=== PATIENT | female | born 1945 | race Caucasian/White ===

== ENCOUNTER → 2016-04-15 | Outpatient (CLI) | payer OTHER, BC | LOC: FIMAGING 15:10 | PROVIDERS: ATTEND Orthopaedic Surgery Foot and Ankle Surgery | DX: M23.221 Derangement of posterior horn of medial meniscus due to old tear or injury, right knee (principal); M22.41 Chondromalacia patellae, right knee; M25.461 Effusion, right knee; M25.561 Pain in right knee ==

== ENCOUNTER 2017-02-21 07:13 | Observation (INO) | payer OTHER ==
--- NOTE | 2017-02-12 18:13 | GHP ---
[f rep st] PREOP HISTORY AND PHYSICAL DATE OF ADMISSION: 02/21/2017 PROBLEM: Right knee arthritis. HISTORY OF PRESENT ILLNESS: The patient is a 71-year-old woman, admitted for a right total knee arth roplasty. She has had progressive pain in her right knee since early 2016. She has had viscosupplem entation injections. I did arthroscopic surgery on her knee in June of 2016. She has had progressive pain. She is now having daily pain, which is limiting her function and activities and quality of li fe. She is admitted for a right total knee arthroplasty. PAST MEDICAL HISTORY: She has treated hypertension, elevated cholesterol, and depression. No histor y of heart disease, stents, DVT, hepatitis, sleep apnea, or bleeding problems. CURRENT MEDICATIONS: Lisinopril 10 mg/hydrochlorothiazide 12.5 mg 1 tablet daily. Paxil 20 mg per d ay. Simvastatin 40 mg per day. DRUG ALLERGIES: Penicillin and sulfa. METAL ALLERGIES: None. LATEX ALLERGY: None. SOCIAL HISTORY: The patient is . She is retired. She does not smoke cigarettes and occasion ally drinks wine. PHYSICAL EXAMINATION: EYES: The conjunctivae and sclerae are clear. Pupils are round and reactive. MOUTH: Good oral hygiene. VITALS: Height 5 feet 2 inches. Weight 179 pounds. BMI 32.7. CHEST: Clear. HEART: Regular rhythm. No murmurs. EXTREMITIES: Pertinent findings limited to her right knee. She has a small effusion. Her ligaments are stable. Full extension and 110 degrees of flexi on. IMAGING: Her films show cartilage space narrowing in the medial and lateral compartments. She has a cemented left total knee arthroplasty with good component position. IMPRESSION ON ADMISSION: 1. Right knee degenerative arthritis. She is prepared for a right total knee arthroplasty. 2. Eleven years status post successful left total knee arthroplasty. 3. Treatment for hypertension, elevated cholesterol, and depression. PLAN: She will undergo a right total knee arthroplasty. The surgery has been described to her, incl uding the risks, complications, expectations, and recovery time. I have stressed the importance of p ostoperative physical therapy. I have advised her that a small percentage of people do not get a goo d result with a total knee replacement. I have also counseled her that with bilateral procedures, th ere can be mild [id number] differences during the recovery and even with the final result. All her questions have been answered, and she consents to surgery. Copy requested to: Dr. Jomar Elizalde, [place] /[id number]/MODL
[~2017-02-21 07:13] MED LIST: POVIDONE-IODINE 20 ML in SODIUM CL IRRIG SOLUTION 500 ML IRR ONE; ROPIVACAINE 0.2% 80 MG, EPINEPHrine 0.2 MG, KETOROLAC TROMETHAMINE 30 MG in SYRINGE 0 ML IU ONE; TRANEXAMIC ACID 800 MG in NS 100 ML IV ONE; VANCOMYCIN PHARMACY TO DOSE MISC ONE
[2017-02-21] MEDS ORDERED: GABAPENTIN 300 MG CAP PO ONE (07:23)
[2017-02-21] MEDS ORDERED: ACETAMINOPHEN 325 MG TAB PO ONE (07:23)
[2017-02-21] MEDS ORDERED: DEXAMETHASONE 4 MG/ML VIAL IVP ONE (07:23)
[2017-02-21] MEDS ORDERED: FAMOTIDINE 20 MG TAB PO ONE (07:23)
[2017-02-21] MEDS ORDERED: LIDOCAINE 1% 2 ML INJ ID PRN (07:25)
[2017-02-21] MEDS ORDERED: LR 1,000 ML IV ONE (07:25)
[2017-02-21] MEDS: VANCOMYCIN 1.25 GM in D5W 250 ML IV ONE ×2 (07:54→09:00)
--- NOTE | 2017-02-21 08:53 | PDANEPAE ---
ANE History of Present Illness 71 yo female with R knee OA for R TKA. ANE Past Medical History - Cardiovascular History Hx Hypertension: Yes Hx Arrhythmias: No Hx Chest Pain: No Hx Coronary Artery / Peripheral Vascular Disease: No Hx CHF / Valvular Disease: No Hx Palpitations: No Cardiovascular History Comment: hypercholesterolemia - Pulmonary History Hx COPD: No Hx Asthma/Reactive Airway Disease: No Hx Recent Upper Respiratory Infection: No Hx Oxygen in Use at Home: No Hx Sleep Apnea: No Sleep Apnea Screening Result - Last Documented: Negative Pulmonary History Comment: URI 01/2017 TREATED WITH ANTIBIOTICS NOW RESOLVED - Neurologic History Hx Cerebrovascular Accident: No Hx Seizures: No Hx Dementia: No - Endocrine History Hx Diabetes: No Hypothyroid: No Obesity: moderate - Renal History Hx Renal Disorders: Yes Renal History Comment: BLADDER URGE INCONT. - Liver History Hx Hepatic Disorders: No - Neurological & Psychiatric Hx Hx Neurological and Psychiatric Disorders: No - Cancer History Hx Cancer: No - Congenital Disorder History Hx Congenital Disorders: No - GI History Hx Gastrointestinal Disorders: Yes Gastrointestinal History Comment: INSTANT DIARRHEA WHEN NERVOUS - Other Health History Other Health History: FIBROMYALGIA - Chronic Pain History Chronic Pain: Yes (RT KNEE) - Surgical History Prior Surgeries: LISSETTE ING HERNIA 08/2016. LT TOTAL KNEE. RT KNEE SCOPE. HYSTERECTOMY ANE Review of Systems Review of Systems: - Exercise capacity METS (RN): 4 METS - Systems Constitutional: Reports: no symptoms Cardiac: Reports: no symptoms Respiratory: Reports: no symptoms Gastrointestinal: Reports: no symptoms ANE Patient History - Allergies Allergies/Adverse Reactions: Penicillins Allergy (Verified 02/02/17 12:10) Hives Sulfa (Sulfonamide Antibiotics) Allergy (Verified 02/02/17 12:11) Hives - Home Medications Home Medications: Herbals/Supplements -Info Only 1 ea PO DAILY 02/02/17 [Last Taken 02/14/17] Lisinopril [Zestril 20 mg (*)] 10 mg PO HS 02/02/17 [Last Taken 02/20/17] Multivitamins [Multivitamin (*)] 1 each PO DAILY 02/02/17 [Last Taken 02/14/17] PARoxetine HCL [Paroxetine HCl] 20 mg PO DAILY 02/02/17 [Last Taken 02/20/17] Simvastatin [Zocor] 10 mg PO HS 02/02/17 [Last Taken 02/20/17 21:00] - NPO status NPO Since - Liquids (Date): 02/20/17 NPO Since - Liquids (Time): 20:30 (small sip this AM with pre-op oral meds) NPO Since - Solids (Date): 02/20/17 NPO Since - Solids (Time): 20:30 - Anes Hx Anes Hx: no prior problems - Smoking Hx Smoking Status: Never smoked Marijuana use: No - Alcohol Use Alcohol Use: Heavy (14/week) - Family Anes Hx Family Anes Hx: neg - N/A ANE Labs/Vital Signs - Labs - CBC HGB: 14 HCT: 45 Platelet Count: 216 - Vital Signs Blood Pressure: 133/90 Heart Rate: 82 Respiratory Rate: 16 O2 Sat (%): 94 Height: 157.48 cm Weight: 80.286 kg ANE Physical Exam - Airway Neck exam: FROM Mallampati Score: Class 2 Mouth exam: normal dental/mouth exam - Pulmonary Pulmonary: clear to auscultation - Cardiovascular Cardiovascular: regular rate and rhythym - ASA Status ASA Status: II ANE Anesthesia Plan Anesthesia Plan: spinal Regional Anesthesia: continuous NB, adductor canal FNB
[2017-02-21] MEDS ORDERED: VANCOMYCIN 1 GM VIAL ONE (09:25)
[2017-02-21] MEDS ORDERED: ceFAZolin 1 GM/5 ML SYR ONE (09:25)
--- NOTE | 2017-02-21 09:31 | PDHPUP ---
History & Physical Update H&P update statement: This history and physical update is based on an assessment of the patient which was completed after admission or registration (within 24 hours), but prior to the surgery/procedure. H&P update: H&P reviewed & patient examined, no change in patient's condition since H&P completed
[2017-02-21] MEDS ORDERED: fentaNYL 100 MCG/2 ML INJ ONE (10:04)
[2017-02-21] MEDS ORDERED: PROPOFOL/EMULSION 500 MG/50 ML BOTTLE IV ONE ×2 (10:04→11:21)
[2017-02-21] MEDS ORDERED: LIDOCAINE 2% 5 ML SDV ONE (10:04)
[2017-02-21] MEDS ORDERED: fentaNYL 100 MCG/2 ML INJ IVP PRN (12:05)
[2017-02-21] MEDS ORDERED: DIAZEPAM 10 MG/2 ML SYR IVP PRN (12:05)
[2017-02-21] MEDS ORDERED: ONDANSETRON 4 MG/2 ML VIAL IVP PRN ×2 (12:05→12:24)
[2017-02-21] MEDS ORDERED: ALBUTEROL 3 ML DEYVIAL IH PRN (12:05)
[2017-02-21] MEDS ORDERED: OXYCODONE/APAP 5/325 TAB PO PRN (12:05)
[2017-02-21] MEDS ORDERED: NALOXONE HCL 0.4 MG/ML INJ IVP PRN (12:05)
[2017-02-21] MEDS ORDERED: LR 500 ML IV PRN (12:05)
--- NOTE | 2017-02-21 12:07 | POSTOPPROG ---
Post Op Note Date of Operation: 02/21/17 Surgeon: Jensen Allan Burner Machine Operator: Morgan/Esa Anesthesiologist: Dr. Leslie Stephenson Anesthesia: IV Sedation, Spinal Post-op Diagnosis: right knee arthritis Procedure: right TKA Inf/Abcess present in the surg proc area at time of surgery?: No EBL: 50-100 (adductor canal block in PACU)
[2017-02-21] MEDS ORDERED: BISACODYL 10 MG SUPP PR PRN (12:24)
[2017-02-21] MEDS ORDERED: DIPHENOXYLATE/ATROPINE LOMOTIL 1 TAB PO PRN (12:24)
[2017-02-21] MEDS ORDERED: CYCLOBENZAPRINE 10 MG TAB PO PRN (12:24)
[2017-02-21] MEDS ORDERED: KETOROLAC 30 MG/1 ML SDV IVP PRN (12:24)
[2017-02-21] MEDS ORDERED: NS 500 ML IV PRN (12:24)
[2017-02-21] MEDS ORDERED: POLYETHYLENE GLYCOL 3350 17 GM PKT PO PRN (12:24)
[2017-02-21] MEDS ORDERED: traMADol 50 MG TAB PO PRN (12:24)
[2017-02-21] MEDS ORDERED: PROMETHAZINE HCL 25 MG/ML INJ IVP PRN (12:24)
[2017-02-21] MEDS ORDERED: LACTULOSE 20 GM/30 ML UDCUP PO PRN (12:24)
[2017-02-21] MEDS ORDERED: ONDANSETRON DISINTEGRATING 4 MG TAB PO PRN (12:24)
[2017-02-21] MEDS ORDERED: diphenhydrAMINE 25 MG CAP PO PRN (12:24)
[2017-02-21] MEDS ORDERED: TEMAZEPAM 15 MG CAP PO PRN (12:24)
[2017-02-21] MEDS ORDERED: PROMETHAZINE HCL 25 MG SUPPR PR PRN (12:24)
[2017-02-21] MEDS ORDERED: MAGNESIUM HYDROXIDE 30 ML UDCUP PO PRN (12:24)
[2017-02-21] MEDS ORDERED: LR 1,000 ML IV SCH (12:30)
--- NOTE | 2017-02-21 12:44 | POSTANESTH ---
Post Anesthetic Evaluation Cardiovascular Status: Normal, Stable Respiratory Status: Normal, Stable Level of Consciousness/Mental Status: Can Participate in Eval, Mildly Sleepy, Arousable Pain Control: Adequate, Prn Tx Ordered Nausea/Vomiting Control: Adequate, Prn Tx Ordered Complications Possibly Related to Anesthesia: None Noted (Pt comfortable. Moving LE bilaterally. Adductor canal block with catheter placement in PACU while LE still numb from spinal block. No complications. VSS)
--- NOTE | 2017-02-21 12:57 | GOP ---
[f rep st] OPERATIVE REPORT DATE OF OPERATION: 02/21/2017 SURGEON: Jensen Allan MD FISH ROE PROCESSOR: 1. Ambrocio Mora, PAC. 2. Mesfin See BUSINESS INTELLIGENCE ENGINEER. ANESTHESIA: Combination of Marcaine spinal, IV sedation, and adductor canal block. ANESTHESIOLOGIST: Leslie Stephenson MD. PREOPERATIVE DIAGNOSIS: Right knee degenerative arthritis. POSTOPERATIVE DIAGNOSIS: Right knee degenerative arthritis. PROCEDURE PERFORMED: Right total knee arthroplasty, cemented, Hernandez and Nephew Journey II, posterior stabilized. FINDINGS: DESCRIPTION OF PROCEDURE: The patient was given 1.5 g of vancomycin preoperatively within 60 minutes of surgery. She also received IV tranexamic acid at a dose of 10 mg/kg. She was placed on the oper ating room table and given spinal anesthesia with Marcaine by Dr. Stephenson. She was then placed supin e and given IV sedation. A Fuentes catheter was not used. A PALOMA stocking and SCD were placed on the n onoperative leg. Her right lower extremity was prepped with ChloraPrep from the upper thigh tourniqu et to the tips of the toes. It was draped free using sterile sheets, stockinette, and Ioban plastic adhesive drape. The lower leg was wrapped with compressive Coban. The leg was exsanguinated with el evation and a 6-inch compressive wrap, and the pneumatic tourniquet was inflated to 275 mmHg. The World Health Organization time-out was performed to verify the correct patient identity and the c orrect surgical side and site. The [place] time-out was also performed. The [facility] leg holding device was sterilely attached to the operating room table and used throughout the procedure to help position the knee. A straight midline incision was made centered on the grover la. Subcutaneous tissues were sharply divided, and hemostasis was obtained using electrocautery. A medial subcutaneous flap was developed, and the capsule and synovium were opened in a medial parapate llar fashion. Extensive degenerative changes were present, primarily in the medial compartment and i n the patellofemoral joint. Her medial patellofemoral facet was eroded down to subchondral bone. Th e medial capsule and periosteum were elevated off the rim of the medial tibial plateau all the way ar ound to the posteromedial corner. The medial collateral ligament was released enough to balance the medial side of the knee. In order to improve exposure, her patella was prepared first. The original thickness of the patella was measured. I cut a flat surface on the back of the patella. It was sized for a 35 mm resurfacing component. I removed enough bone from the patella such that the remaining bone plus the thickness o f the patellar component recreated the original thickness of the patella. The composite thickness wa s 21 mm. The intramedullary alignment guide system was used to set up the distal femoral cut. The distal femu r was cut in 6 degrees of valgus. Because of a preoperative flexion contracture, I made a +2 mm cut on the distal femur. The sizing jig was used to determine proper femoral sizing. The 5-in-1 cutting block was applied, and the anterior and posterior condylar cuts were made. I shifted the size 5 jig anteriorly 1 mm in order to accommodate the size 5 without notching the anterior cortex. The final jig was used to remove the central portion of the distal femur to accommodate the posterior stabilize d femoral component. I was careful to determine proper rotation by referencing off [place] line an d other bony landmarks. Each cut was checked for accuracy before and after it was made. The femur w as sized for a size 5 posterior stabilized component. Next, the tibia was prepared. The proximal tibial cut was made using the extramedullary alignment gu hanane system. The cut was made in a few degrees of posterior slope. I was careful to achieve proper v arus/valgus alignment. The posterior compartment was cleared of meniscal remnants. Osteophytes were removed from the back of the femoral condyles. I did a trial reduction, and she was a little tight both in extension and flexion. I went ahead and cut 2 additional mm off the proximal tibia. I then checked the flexion and extension gaps, and they were equal and rectangular. Her tibia was sized for a size 4 component. With the trial components in place, I selected a 10 mm polyethylene posterior s tabilized tibial insert. The knee came to full extension and flexed to 125 degrees. Her collateral ligaments were stable and balanced in 90 degrees of flexion and full extension. The trial patellar b utton was applied, and tracking was checked. She had excellent tracking without any digital pressure . 40 mL of the joint anesthetic cocktail were injected into the posterior capsule, the periarticular st ructures, the quadriceps muscle and tendon areas, and the subcutaneous tissues along the skin edges. A second dose of IV tranexamic acid was given at a dose of 10 mg/kg. The surfaces were prepared for cementing. They were carefully cleaned with the pulsating lavage irri gation and thoroughly dried. The CarboJet device was used to blow-dry the cancellous surfaces. A do uble batch of high viscosity methylmethacrylate cement with 2 g of powdered vancomycin added was mixe d. While it was still in a doughy state, all 3 components were cemented in place. Excess cement was removed before it hardened. The 10 mm trial tibial insert was re-tried and was the proper thickness. The actual component was in serted and locked into place. The knee was thoroughly irrigated 1 final time with a dilute Betadine solution. The tourniquet was deflated, and total tourniquet time was 61 minutes. The vastus medialis portion of the extensor mechanism was repaired with several interrupted figure-of -eight #2 FiberWire sutures. The capsule and synovium were closed first with multiple interrupted fi caxm-cm-[id number] 0 PDS sutures, followed by a running #2 barbed Ethicon STRATAFIX PDO suture. The subcu taneous tissues were closed with a running 0 barbed Ethicon STRATAFIX Monoderm suture. The skin was closed with a running 3-0 barbed Ethicon STRATAFIX Monoderm subcuticular suture. The skin edges were sealed with half-inch Steri-Strips. The wound was covered with a piece of large Mepilex waterproof dressing and a 6-inch compressive wrap. A long-leg PALOMA stocking and SCD were applied, followed by th e cooling device. The patient wore a stocking and SCD on the opposite leg during the procedure. I used a size 5 cemented Hernandez and Nephew Oxinium posterior stabilized femoral component, a size 4 ce mented tibial baseplate, a 10 mm posterior stabilized tibial insert and a 35 mm cemented round all-po lyethylene resurfacing patellar component. The estimated blood loss following inflation of the tourniquet was about 100 mL. The sponge and needle count were correct on 2 occasions. The patient was awakened from anesthesia, transferred to her [facility] and taken to PACU in sat isfactory condition. There were no recognized intraoperative complications. In the PACU, for additi onal postoperative pain control, Dr. Stephenson performed an adductor canal block with an indwelling cat heter. Alexei Mora and Mesfin See acted as surgical assistants. Their assistance was a medical necess ity for safe completion of the procedure. Copy requested to: Dr. Sam Renteria /[id number]/MODL
[2017-02-21] MEDS ORDERED: BUPIVACAINE 0.5% 30 ML SDV ONE (13:18)
[2017-02-21] MEDS: oxyCODONE IR 5 MG TAB PO PRN ×3 (14:49→19:20)
[2017-02-21] MEDS: TRANEXAMIC ACID 650 MG TAB PO SCH (17:19)
[2017-02-21] MEDS: ACETAMINOPHEN 325 MG TAB PO SCH (17:19)
[2017-02-21] MEDS: FAMOTIDINE 20 MG TAB PO SCH (20:26)
[2017-02-21] MEDS: ASPIRIN 325 MG TAB PO SCH (20:27)
[2017-02-21] MEDS: SENNOSIDES/DOCUSATE SODIUM TAB PO SCH (20:27)
[2017-02-21] MEDS ORDERED: LISINOPRIL 20 MG TAB PO SCH (21:00)
[2017-02-21] MEDS ORDERED: NON-FORMULARY NEW DRUG (Simvastatin [Zocor] 10 MG) PO SCH (21:00)
[2017-02-21] MEDS ORDERED: VANCOMYCIN HCL/NORMAL SALINE 250 ML IV ONE (21:00)
[2017-02-21] MEDS ORDERED: PRAVASTATIN SODIUM 20 MG TAB PO SCH (21:00)
[2017-02-21] MEDS ORDERED: VANCOMYCIN 1 GM in NS 250 ML IV ONE (22:00)
[2017-02-22] MEDS: ACETAMINOPHEN 325 MG TAB PO SCH ×3 (00:57→11:23)
[2017-02-22] MEDS: TRANEXAMIC ACID 650 MG TAB PO SCH ×2 (00:58→11:23)
[2017-02-22] MEDS: oxyCODONE IR 5 MG TAB PO PRN ×2 (00:58→07:42)
[2017-02-22 04:44] VITALS: RESP 16
--- NOTE | 2017-02-22 07:24 | SOAPPROG ---
SOAP Progress Note Assessment/Plan: Assessment: Afebrile. Awake and alert. She has been up and walking in the acosta already. Moderate knee. Postop H&H is good. Postop films look excellent. Plan: Continue physical therapy today. Dr. Leslie Stephenson will re-dosed her adductor canal block catheter again this morning. After that she will remove the catheter. Discharge later today. 02/22/17 07:23 Objective: Vital Signs Temp Pulse Resp BP Pulse Ox 36.9 C 83 16 142/67 H 94 02/22/17 04:00 02/22/17 04:00 02/22/17 04:00 02/22/17 04:00 02/22/17 04:00 Laboratory Results 02/22/17 04:30 02/21/17 02/22/17 02/23/17 05:59 05:59 05:59 Intake Total 3875 Output Total 650 Balance 3225 ICD10 Worksheet Patient Problems: Problems Problem Status Onset Osteoarthritis of right knee Acute
[2017-02-22 07:28] VITALS: BP 112/75; PULSE 68; TEMP 97.7; O2SAT 95
--- NOTE | 2017-02-22 07:28 | PDIAF ---
- Diagnosis Diagnosis: R knee OA Code Status: Full Code - Medication Management Discharge Medications: Medications to Continue on Transfer Herbals/Supplements -Info Only 1 ea PO DAILY 02/02/17 [Last Taken 02/14/17] Lisinopril [Zestril 20 mg (*)] 10 mg PO HS 02/02/17 [Last Taken 02/20/17] Multivitamins [Multivitamin (*)] 1 each PO DAILY 02/02/17 [Last Taken 02/14/17] PARoxetine HCL [Paroxetine HCl] 20 mg PO DAILY 02/02/17 [Last Taken 02/20/17] Simvastatin [Zocor] 10 mg PO HS 02/02/17 [Last Taken 02/20/17 21:00] Acetaminophen [Tylenol 325mg (*)] 650 mg PO Q6HRS tab 02/22/17 [Last Taken Unknown] Aspirin [Aspirin 325 mg (*)] 325 mg PO DAILY tab 02/22/17 [Last Taken Unknown] Ferrous Sulfate [Slow Fe 140 MG (*)] 140 mg PO DAILY tab.er 02/22/17 [Last Taken Unknown] Ondansetron Odt [Zofran Odt 4 mg (*)] 4 mg PO Q4HRS PRN tab 02/22/17 [Last Taken Unknown] Sennosides/Docusate Sodium [Senokot-S] 1 - 2 tab PO BID tab 02/22/17 [Last Taken Unknown] oxyCODONE IR [Oxycodone Ir (*)] 5 - 10 mg PO Q3HRS PRN tab 02/22/17 [Last Taken Unknown] traMADol [Ultram 50 mg (*)] 50 mg PO Q6HRS PRN tab 02/22/17 [Last Taken Unknown ] Discharge Medications: Refer to the Discharge Home Medication list for PRN reason. PICC Care - Routine: N/A - Orders Services needed: Physical Therapy Diet Recommendation: no restrictions on diet Diet Texture: Regular Texture Diet Rodrigo Stockings Discontinue Date: 1 week Wound Care Instructions: keep clean and dry. You may shower. Activity/Weight Bearing Restrictions: as tolerated Equipment: Zero knee while in bed as tolerated. - Follow Up Care Current Providers and Referrals: TAYLOR STERN [Other] Jensen Allan MD [Medical Doctor] - 03/05/17
[2017-02-22] MEDS: FAMOTIDINE 20 MG TAB PO SCH (07:43)
[2017-02-22] MEDS: ASPIRIN 325 MG TAB PO SCH (07:44)
[2017-02-22] MEDS: SENNOSIDES/DOCUSATE SODIUM TAB PO SCH (07:44)
--- NOTE | 2017-02-22 07:45 | GDS ---
[f rep st] DISCHARGE SUMMARY ADMISSION DIAGNOSIS: Right knee degenerative arthritis. DISCHARGE DIAGNOSIS: Right knee degenerative arthritis. PROCEDURE PERFORMED: 02/21/2017, right total knee arthroplasty. POSTOPERATIVE COMPLICATIONS: None. CONDITION ON DISCHARGE: Improved. DESCRIPTION OF HOSPITAL COURSE: The patient was admitted to the hospital on the morning of surgery. Her admission CBC was normal. The same day, under a combination of Marcaine, spinal, and IV sedatio n, she underwent a right total knee arthroplasty. Postoperatively, she was treated with multimodal D VT prophylaxis, including aspirin. On the first postoperative day, her hemoglobin and hematocrit wer e 13.0 and 37.8. She was seen by Physical Therapy and made excellent progress with ambulation, stair s and knee range of motion. By the time of discharge, she was afebrile and was independent walking. DISPOSITION: The patient discharged to her home. She will have home physical therapy for 1 or 2 wee ks. She may progress to full weightbearing on the right as tolerated. She will use PALOMA stockings fo r 1 week. She will continue aspirin 325 mg p.o. daily for 21 days. She has prescriptions for Celebr ex, tramadol and oxycodone for pain control. I will see her back in the office on March 05, 2016. If there are any problems, she is to call me at the office. Copy requested to: MD Armando Rodriguez [place] /[id number]/MODL
[2017-02-22] MEDS ORDERED: PARoxetine HCL 20 MG TAB PO SCH (09:00)
[2017-02-22] MEDS ORDERED: FERROUS SULFATE 140 MG TAB.ER PO SCH (09:00)
--- NOTE | 2017-02-22 09:52 | ASMTCMCOM ---
CM Note CM Note Notes: Pt medically stable for d/c with [facility], address/phone verified. Orders sent in [employer]. Date Signed: 02/22/2017 09:52 AM Electronically Signed By:KEL Lacy
--- NOTE | 2017-02-22 11:28 | SOAPPROG ---
SOAP Progress Note Assessment/Plan: Assessm Patient is status TKA with continous adductor canal nerve block. site of the catheter entry clean, total of 20 ml marcaine 0.5% plain injected slowly in 3 ml increments with frequent aspiration, sterile technique, then catheter pulled out. Tip intact. VSS. patient comfortable. Plan: 02/22/17 11:25 Objective: Vital Signs Temp Pulse Resp BP Pulse Ox 36.5 C 68 16 112/75 95 02/22/17 07:27 02/22/17 07:27 02/22/17 07:27 02/22/17 07:27 02/22/17 07:27 Laboratory Results 02/22/17 04:30 02/21/17 02/22/17 02/23/17 05:59 05:59 05:59 Intake Total 3875 Output Total 650 Balance 3225 ICD10 Worksheet Patient Problems: Problems Problem Status Onset Osteoarthritis of right knee Acute
--- NOTE | 2017-02-22 14:01 | ASDISCHSUM ---
Discharge Information Plan Status:Home with Home Health Medically Cleared to Leave: Discharge Date:02/22/2017 12:03 PM CM D/C Disposition:Home Health Service ADT D/C Disposition:[id number] Projected Discharge Date:02/22/2017 11:00 AM Transportation at D/C: Discharge Delay Reason: Follow-Up Date:02/22/2017 11:00 AM Discharge Slot: Final Diagnosis: Placement Information Referral Type:*Home Health Care Services Referral ID:[id number] Provider Name:[facility] [place] Address 1:[address] [address] Phone Number: Address 2: Fax Number: City:[place] Selection Factors: State:[place] Patient Contact Information Contact Name:DAMON Relationship: Address:[address] Work Phone: City:[place] [facility] Phone: [facility] Code:[place] [address] Email: Financial Information Financial Class: Primary Plan Desc:MEDICARE INPATIENT Primary Plan Number:[id number] Secondary Plan Desc:[employer] Secondary Plan Number:[id number] Assessment Information [facility] CM Progress Note CM Note CM Note Notes: Pt medically stable for d/c with [facility], address/phone verified. Orders sent in [facility]. Date Signed: 02/22/2017 09:52 AM Electronically Signed By:KEL Lacy Intervention Information
== END 2017-02-22 12:03 | disposition home health service (06) ==
LOC: INTOOBSV 07:13 → F3N 07:13
PROVIDERS: ADMIT Orthopaedic Surgery; ATTEND Orthopaedic Surgery
PROC: 0SRC0J9 Replacement of Right Knee Joint with Synthetic Substitute, Cemented, Open Approach (ICD-10-PCS; principal; 2017-02-21 09:45)
DX: M17.11 Unilateral primary osteoarthritis, right knee (principal); M25.561 Pain in right knee; M79.7 Fibromyalgia; I10 Essential (primary) hypertension; E78.5 Hyperlipidemia, unspecified; F32.9 Major depressive disorder, single episode, unspecified; Z96.652 Presence of left artificial knee joint; Z88.0 Allergy status to penicillin; Z88.2 Allergy status to sulfonamides
CPT/HCPCS: 27447; 73560; 77073; 97110; 97116; 97161; 97165; G8978; G8979; G8980; G8987; G8988; G8989; C1713; J0171; J1100; J1885; J2704; J2795; J3010; J3370

== ENCOUNTER 2017-04-24 06:09 | Day surgery (SDC) | payer OTHER ==
--- NOTE | 2017-04-23 13:51 | GHP ---
[f rep st] PREOP HISTORY AND PHYSICAL DATE SCHEDULED FOR SURGERY: April 24, 2017. PROBLEM: Status post right total knee arthroplasty with failure to regain adequate flexion. HISTORY OF PRESENT ILLNESS: The patient is a 71-year-old woman who underwent a right total knee arthroplasty on February 21, 2017. She has worked aggressively with her physical therapy. She has not been able to regain adequate flexion. She is admitted for closed manipulation. PAST MEDICAL HISTORY: She is treated for hypertension, elevated cholesterol and depression. No history of heart disease, DVT, hepatitis, or sleep apnea. CURRENT MEDICATIONS: Lisinopril/hydrochlorothiazide 10/12.5 one tablet daily. Paxil 20 mg per day. Simvastatin 40 mg per day. DRUG ALLERGIES: Penicillin and sulfa. METAL ALLERGY: None. LATEX ALLERGY: None. PHYSICAL EXAMINATION: GENERAL: She is a healthy-appearing woman. HEART: Regular rhythm. No murmurs. LUNGS: Clear. EXTREMITIES: Pertinent findings are limited to her right total knee. Her wound is nicely healed. She has good alignment. Full extension and 105 degrees of flexion. She has a hard endpoint. Her collateral ligaments are stable in 5 degrees of flexion and 90 degrees of flexion. IMAGING STUDIES: Her films look fine. Good position of her components. IMPRESSION ON ADMISSION: 1. Status post right total knee arthroplasty with failure to regain flexion. 2. Treatment for hypertension. 3. Treatment for elevated cholesterol. 4. Treatment for depression. PLAN: The procedure has been described to her, along with the risks, complications, and expectations. I have advised her that there is some risk of fracture or rupturing desirable ligaments or tendons. All her questions have been answered, and she consents to surgery. Copy requested to: Dr. Jomar Elizalde [place] /[id number]/MODL MTDD
[2017-04-24] MEDS ORDERED: GABAPENTIN 300 MG CAP PO ONE (06:16)
[2017-04-24] MEDS ORDERED: ONDANSETRON DISINTEGRATING 4 MG TAB PO ONE (06:16)
[2017-04-24] MEDS ORDERED: LIDOCAINE 1% 2 ML INJ ID PRN (06:16)
[2017-04-24] MEDS ORDERED: DEXAMETHASONE 4 MG TAB PO ONE (06:16)
[2017-04-24] MEDS ORDERED: ACETAMINOPHEN 500 MG TAB PO ONE (06:16)
[2017-04-24] MEDS ORDERED: LR 1,000 ML IV ONE (06:16)
[2017-04-24] MEDS ORDERED: ONDANSETRON DISINTEGRATING 4 MG TAB ONE (06:48)
--- NOTE | 2017-04-24 06:55 | PDHPUP ---
History & Physical Update H&P update statement: This history and physical update is based on an assessment of the patient which was completed after admission or registration (within 24 hours), but prior to the surgery/procedure. H&P update: H&P reviewed & patient examined
[2017-04-24] MEDS ORDERED: MIDAZOLAM 2 MG/2 ML VIAL IVP ONE (06:58)
--- NOTE | 2017-04-24 06:58 | PDANEPAE ---
ANE History of Present Illness Right knee manipulation s/p TKA ANE Past Medical History - Cardiovascular History Hx Hypertension: Yes Hx Arrhythmias: No Hx Chest Pain: No Hx Coronary Artery / Peripheral Vascular Disease: No Hx CHF / Valvular Disease: No Hx Palpitations: No Cardiovascular History Comment: hypercholesterolemia - Pulmonary History Hx COPD: No Hx Asthma/Reactive Airway Disease: No Hx Recent Upper Respiratory Infection: No Hx Oxygen in Use at Home: No Hx Sleep Apnea: No Sleep Apnea Screening Result - Last Documented: Negative Pulmonary History Comment: URI 01/2017 TREATED WITH ANTIBIOTICS NOW RESOLVED - Neurologic History Hx Cerebrovascular Accident: No Hx Seizures: No Hx Dementia: No - Endocrine History Hx Diabetes: No Obesity: no - Renal History Hx Renal Disorders: Yes Renal History Comment: BLADDER URGE INCONT. 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 FIBROMYALGIA - Chronic Pain History Chronic Pain: Yes (RT KNEE) - Surgical History Prior Surgeries: RT TOTAL KNEE 02/21/17. LISSETTE ING HERNIA 08/2016. LT TOTAL KNEE. RT KNEE SCOPE. HYSTERECTOMY ANE Review of Systems Review of Systems: - Exercise capacity METS (RN): 4 METS ANE Patient History - Allergies Allergies/Adverse Reactions: Penicillins Allergy (Verified 02/02/17 12:10) Hives Sulfa (Sulfonamide Antibiotics) Allergy (Verified 02/02/17 12:11) Hives - Home Medications Home medications: home medication list seen and reviewed Home Medications: Lisinopril [Zestril 20 mg (*)] 10 mg PO HS 02/02/17 [Last Taken 1 Day Ago ~04/23] Multivitamins [Multivitamin (*)] 1 each PO DAILY 02/02/17 [Last Taken 1 Day Ago ~04/23/17] PARoxetine HCL [Paroxetine HCl] 20 mg PO HS 02/02/17 [Last Taken 1 Day Ago ~] Simvastatin [Zocor] 10 mg PO HS 02/02/17 [Last Taken 1 Day Ago ~04/23/17] - NPO status NPO Since - Liquids (Date): 04/23/17 NPO Since - Liquids (Time): 21:00 NPO Since - Solids (Date): 04/23/17 NPO Since - Solids (Time): 21:00 - Anes Hx Anes Hx: no prior problems - Smoking Hx Smoking Status: Never smoked ANE Labs/Vital Signs - Vital Signs Blood Pressure: 133/90 Heart Rate: 83 Respiratory Rate: 18 O2 Sat (%): 95 Height: 157.48 cm Weight: 78.018 kg ANE Physical Exam - Airway Neck exam: FROM Mallampati Score: Class 1 Mouth exam: normal dental/mouth exam - Pulmonary Pulmonary: no respiratory distress - Cardiovascular Cardiovascular: regular rate and rhythym - ASA Status ASA Status: II ANE Anesthesia Plan Anesthesia Plan: GA with mask
[2017-04-24] MEDS ORDERED: LIDOCAINE 2% 5 ML SDV ONE (07:03)
[2017-04-24] MEDS ORDERED: fentaNYL 100 MCG/2 ML INJ ONE (07:03)
[2017-04-24] MEDS ORDERED: PROPOFOL 200 MG/20 ML VIAL ONE (07:03)
[2017-04-24] MEDS ORDERED: BUPIVACAINE/EPI 0.5% 30 ML SDV ONE (07:21)
--- NOTE | 2017-04-24 07:32 | POSTOPPROG ---
Post Op Note Date of Operation: 04/24/17 Surgeon: Jensen Allan Supervisor Machine Workers: None Anesthesiologist: Mark Anesthesia: GET(General Endotracheal) Post-op Diagnosis: Status post right total knee arthroplasty with knee stiffness Procedure: Closed manipulation of right total knee arthroplasty Inf/Abcess present in the surg proc area at time of surgery?: No EBL: none (I injected 15 cc of 0.5% Marcaine with epinephrine intra-articularly. )
[2017-04-24] MEDS ORDERED: PROMETHAZINE HCL 25 MG/ML INJ IVP PRN (07:40)
[2017-04-24] MEDS ORDERED: ONDANSETRON 4 MG/2 ML VIAL IVP PRN (07:40)
[2017-04-24] MEDS ORDERED: ALBUTEROL 3 ML DEYVIAL IH PRN (07:40)
[2017-04-24] MEDS ORDERED: ACETAMINOPHEN 500 MG TAB PO PRN (07:40)
[2017-04-24] MEDS ORDERED: HYDROCODONE/APAP 5/325 TAB PO PRN (07:40)
[2017-04-24] MEDS ORDERED: OXYCODONE/APAP 5/325 TAB PO PRN (07:40)
[2017-04-24] MEDS ORDERED: fentaNYL 100 MCG/2 ML INJ IVP PRN (07:40)
[2017-04-24] MEDS ORDERED: NALOXONE HCL 0.4 MG/ML INJ IVP PRN (07:40)
[2017-04-24] MEDS ORDERED: LR 500 ML IV PRN (07:40)
--- NOTE | 2017-04-24 07:40 | POSTANESTH ---
Post Anesthetic Evaluation Cardiovascular Status: Normal, Stable Respiratory Status: Normal, Stable Level of Consciousness/Mental Status: Can Participate in Eval Pain Control: Adequate, Prn Tx Ordered Nausea/Vomiting Control: Adequate, Prn Tx Ordered Complications Possibly Related to Anesthesia: None Noted
[2017-04-24 08:49] VITALS: PULSE 80
--- NOTE | 2017-04-24 11:56 | PDHOMEO2F ---
Home Oxygen Face to Face Home Orders: I certify that a physician or a nurse practitioner or physician's assistant research scientist has had a [id number] encounter with this patient on the date of this order due to the diagnosis listed, which relates to the primary reason the patient requires home oxygen. Alternative treatments have been tried, or considered, and deemed ineffective. It is anticipated that supplemental oxygen will result in improvement with treatment. Home oxygen qualifying diagnosis: postoperative hypoxia SpO2 on room air (%): 87 Frequency of home oxygen needed: continuous Home oxygen liters per minute: 2 Home oxygen delivery device: nasal cannula Concentrator: Yes E-tanks for mobility and back up: Yes If ordering portable O2, is the patient mobile in the home?: Yes I certify that, based on these findings, the home oxygen is medically necessary for this patient for the following length of time. Length of time home oxygen needed: 1 week
[2017-04-24 13:35] VITALS: BP 118/68; RESP 12; O2SAT 92
--- NOTE | 2017-04-24 13:46 | GOP ---
[f rep st] OPERATIVE REPORT DATE OF OPERATION: 04/24/2017 SURGEON: Jensen Allan MD IRRIGATION DISTRICT MANAGER: None. ANESTHESIA: General. ANESTHESIOLOGIST: Adeel Flores MD. PREOPERATIVE DIAGNOSIS: Status post right total knee arthroplasty with failure to gain flexion. POSTOPERATIVE DIAGNOSIS: Status post right total knee arthroplasty with failure to gain flexion. PROCEDURE PERFORMED: Closed manipulation of right total knee arthroplasty. FINDINGS: DESCRIPTION OF PROCEDURE: The patient was brought to the operating room on the [facility]. Whi le she was on the [facility], she was given general anesthesia by Dr. Flores. The time-out was perform ed to verify the correct patient identity and the correct surgical side and site. She had full extension and about 105 degrees of flexion. I gently manipulated the knee into flexion. I could feel some soft adhesions rupture. I was able to manipulate her to about 135 degrees of fle xion. At the conclusion of the procedure she flexed to 120 just by gravity. She had full extension. Her collateral ligaments were stable. Her knee was prepped with Betadine. I injected 15 cc of 0.5% Marcaine with epinephrine intra-articul chanel. She was awakened from anesthesia and taken to PACU in satisfactory condition. There were no recogniz ed intraoperative complications. /[id number]/MODL
[2017-04-24 13:51] VITALS: TEMP 97.9
== END 2017-04-24 13:34 | disposition home or self-care (01) ==
LOC: FSGY 06:09
PROVIDERS: ATTEND Orthopaedic Surgery
PROC: 2W6LXZZ Traction of Right Lower Extremity (ICD-10-PCS; principal; 2017-04-24 07:15)
DX: T84.092A Other mechanical complication of internal right knee prosthesis, initial encounter (principal); I10 Essential (primary) hypertension; E78.00 Pure hypercholesterolemia, unspecified; M79.7 Fibromyalgia; Y83.1 Surgical operation with implant of artificial internal device as the cause of abnormal reaction of the patient, or of later complication, without mention of misadventure at the time of the procedure; Z88.0 Allergy status to penicillin; Z88.2 Allergy status to sulfonamides
CPT/HCPCS: J2250; J2704; J3010

== ENCOUNTER → 2017-10-11 | Outpatient (CLI) | payer OTHER | LOC: FIMAGING 10:29 | PROVIDERS: ATTEND Physician Assistant | DX: M17.0 Bilateral primary osteoarthritis of knee (principal); T84.033A Mechanical loosening of internal left knee prosthetic joint, initial encounter; Z96.652 Presence of left artificial knee joint | CPT/HCPCS: 78315; A9503 ==